=== PATIENT | female | born 1975 | race African-American/Black ===

== ENCOUNTER 2017-01-14 19:20 | Emergency (ER) | payer MEDICARE, OTHER ==
[~2017-01-14] VITALS: Ht 149.9 cm; Wt 86.2 kg
[2017-01-14 19:50] VITALS: BP 189/76
[2017-01-14] MEDS ORDERED: GABAPENTIN 300 MG CAPSULE. PO STA (20:00)
[2017-01-14] MEDS ORDERED: KETOROLAC TROMETHAMINE 60 MG/2 ML INJ. IM ONE (20:15)
[2017-01-14] MEDS ORDERED: predniSONE 20 MG TABLET PO ONE (20:15)
[2017-01-14] MEDS ORDERED: diazePAM 5 MG TABLET PO ONE (20:15)
[2017-01-14] MEDS ORDERED: MORPHINE SULFATE 10 MG/ML VIAL. IM ONE (20:15)
[2017-01-14] MEDS ORDERED: HYDR-971 PO (20:31)
[2017-01-14] MEDS ORDERED: CYCL10TA2 PO (20:31)
[2017-01-14] MEDS ORDERED: GABA-586 PO (20:31)
[2017-01-14] MEDS ORDERED: PRED-220 PO (20:31)
--- NOTE | 2017-01-14 20:31 | PHYS DOC ---
Past Medical History Past Medical History: No Pertinent History Past Surgical History: Hysterectomy Alcohol Use: None Drug Use: None Adult General Chief Complaint Chief Complaint: DENTAL PROBLEM HPI HPI Patient is a 41 year old female who presents with moderate left jaw pain. Patient states she was diagnosed with trigeminal neuralgia and is on carbamazepine. Patient states the medication is not helping. Patient denies any fever. Review of Systems Review of Systems Constitutional: Denies fever or chills [] Eyes: Denies change in visual acuity, redness, or eye pain [] HENT: Denies nasal congestion or sore throat [] Respiratory: Denies cough or shortness of breath [] Cardiovascular: No additional information not addressed in HPI [] GI: Denies abdominal pain, nausea, vomiting, bloody stools or diarrhea [] : Denies dysuria or hematuria [] Musculoskeletal: Denies back pain or joint pain [] Integument: Denies rash or skin lesions [] Neurologic: Left jaw pain due to trigeminal neuralgia Current Medications Current Medications Current Medications Medications (Trade) Dose Ordered Sig/[facility] Start Time Stop Time Status Last Admin Dose Admin Diazepam (Valium) 5 mg 1X ONCE 01/14/17 20:15 01/14/17 20:16 DC 01/14/17 20:15 5 MG Gabapentin (Neurontin) 300 mg 1X STAT 01/14/17 20:00 01/14/17 20:04 DC 01/14/17 20:15 300 MG Ketorolac Tromethamine (Toradol Im) 60 mg 1X ONCE 01/14/17 20:15 01/14/17 20:16 DC 01/14/17 20:16 60 MG Morphine Sulfate 5 mg 1X ONCE 01/14/17 20:15 01/14/17 20:16 DC 01/14/17 20:16 5 MG Prednisone (Prednisone) 60 mg 1X ONCE 01/14/17 20:15 01/14/17 20:16 DC 01/14/17 20:15 60 MG Allergies Allergies Allergies Coded Allergies Type Severity Reaction Last Updated Verified No Known Drug Allergies 01/14/17 No Physical Exam Physical Exam Constitutional: Well developed, well nourished, no acute distress, non-toxic appearance. []Patient is crying. HENT: Normocephalic, atraumatic, bilateral external ears normal, oropharynx moist, no oral exudates, nose normal. [] Eyes: PERRLA, EOMI, conjunctiva normal, no discharge. [] Neck: Normal range of motion, no tenderness, supple, no stridor. [] Cardiovascular:Heart rate regular rhythm, no murmur [] Lungs & Thorax: Bilateral breath sounds clear to auscultation [] Abdomen: Bowel sounds normal, soft, no tenderness, no masses, no pulsatile masses. [] Skin: Warm, dry, no erythema, no rash. [] Back: No tenderness, no CVA tenderness. [] Extremities: No tenderness, no cyanosis, no clubbing, ROM intact, no edema. [] Neurologic: Alert and oriented X 3, normal motor function, normal sensory function, no focal deficits noted. Patient is in moderate pain. Exam very difficult. Tenderness noted on touching the left side of her face. Psychologic: Affect normal, judgement normal, mood normal. [] Current Patient Data Vital Signs Vital Signs Date Time Temp Pulse Resp B/P (MAP) Pulse Ox O2 Delivery O2 Flow Rate FiO2 01/14/17 20:16 16 Room Air 01/14/17 19:50 99.3 87 99 99.3 EKG EKG [] Radiology/Procedures Radiology/Procedures [] Course & Med Decision Making Course & Med Decision Making Pertinent Labs and Imaging studies reviewed. (See chart for details) Patient arrived in the ED crying out loud due to trigeminal neuralgia pain we initially could not figure out what her source of pain was because all she was doing is crying and stating she has jaw pain. She's had this pain for 2 months. She is on carbamazepine. She states is not helping. She was given pain relief in the ED. She was discharged with gabapentin cyclobenzaprine prednisone and [place] 8 tablets. She was instructed to follow-up with a neurologist which I provided. Dragon Disclaimer Dragon Disclaimer This electronic medical record was generated, in whole or in part, using a voice recognition dictation system. Departure Departure Impression: Primary Impression: Trigeminal neuralgia of left side of face Disposition: HOME, SELF-CARE Condition: STABLE Referrals: NO PCP (PCP) KRISTAL GATICA MD follow up as soon as you can Patient Instructions: Trigeminal Neuralgia Additional Instructions: You were seen for trigeminal neuralgia pain. Please follow-up with the provided urologist as soon as possible. Take the medications provided as ordered. Come back to the ED if symptoms worsen. Scripts Prednisone (PREDNISONE) 10 Mg Tablet 10 MG PO UD for PREDNISONE TAPER, #39 TAB 0 Refills Take 3 tablets by mouth twice a day for 3 days, then take 2 tablets by mouth twice a day for 3 days, then take 1 tablet by mouth twice a day for 3 days, then take 1 tablet by mouth daily x 3 days, then stop. Prov: BHUPINDER DAVILA APRN 01/14/17 Cyclobenzaprine Hcl (CYCLOBENZAPRINE HCL) 10 Mg Tablet 1 TAB PO TID, #30 TAB Prov: BHUPINDER DAVILA APRN 01/14/17 Gabapentin (GABAPENTIN) 300 Mg Capsule 300 MG PO TID, #30 CAP Prov: BHUPINDER DAVILA APRN 01/14/17 Hydrocodone/Apap 5-325 (NORCO 5-325 TABLET) 1 Each Tablet 1-2 TAB PO Q4-6HRS, #8 TAB DO NOT FILL IF SHE HAS FILLED ANY NARCOTICS IN THE LAST SEVEN DAYS CAN NOT BE FILLED PAST 01/15/2017 Prov: BHUPINDER DAVILA APRN 01/14/17 BHUPINDER DAVILA APRN Jan 14, 2017 20:31
== END 2017-01-14 20:58 | disposition home or self-care (01) ==
LOC: ER 19:20
DX: G50.0 Trigeminal neuralgia (principal)
CPT/HCPCS: 96372; 99284; J1885; J2270; J7512

== ENCOUNTER → 2017-01-28 | Outpatient (CLI) | payer MEDICARE, OTHER ==
[2017-01-14 19:50] VITALS: BP 189/76
[~2017-01-28] MED LIST: CYCL10TA2 PO; GABA-586 PO; GADOBUTROL 7.5 MMOL/7.5 ML VIAL IV ONE; HYDR-971 PO; PRED-220 PO
[2017-01-28 10:34] LABS: BASO % 0 % (0-3); EOS % 0 % (0-3); HEMOGLOBIN 12.9 g/dL (12.0-15.5); LYMPH # 1.1 x10^3/uL (1.0-4.8); LYMPH % 13 % (24-48); MEAN CORPUSCULAR HEMOGLOBIN 29 pg (25-35); MEAN CORPUSCULAR HGB CONC 34 g/dL (31-37); MEAN CORPUSCULAR VOLUME 85 fL (79-100); MONO % 6 % (0-9); NEUT % 80 % (31-73); PLATELET COUNT 221 x10^3/uL (140-400); RED BLOOD COUNT 4.46 x10^6/uL (3.50-5.40); RED CELL DISTRIBUTION WIDTH 15.9 % (11.5-14.5); WHITE BLOOD COUNT 8.5 x10^3/uL (4.0-11.0)
[2017-01-28 10:49] LABS: ALBUMIN 3.4 g/dL (3.4-5.0); ALBUMIN/GLOBULIN RATIO 1.1 (1.0-1.7); CALCIUM 8.8 mg/dL (8.5-10.1); CREATININE 0.8 mg/dL (0.6-1.0); GFR 94.7; POTASSIUM 3.8 mmol/L (3.5-5.1); TOTAL BILIRUBIN 0.3 mg/dL (0.2-1.0); TOTAL PROTEIN 6.5 g/dL (6.4-8.2)
--- NOTE | 2017-01-28 14:06 | RAD ---
Temporomandibular joints, 6 views, 01/28/2017: History: Left TMJ pain Lateral views of both temporomandibular joints were obtained with the mouth open and closed. Additional AP and Susan's views were also obtained. The mandibular condyles were poorly delineated on these images is due to overlap of other bony structures. There appears to be less anterior translation of the left mandibular condyle compared to the right with opening of the mouth. No fracture or destructive bony lesion is seen. MR scanning of the temporal mandibular joints is suggested for further evaluation, if clinically indicated.
--- NOTE | 2017-01-28 14:35 | RAD ---
MRI of the brain without and with contrast 01/28/2017 CLINICAL HISTORY: Left sided trigeminal neuralgia for 3 years. TECHNIQUE: Unenhanced T1-weighted sagittal and axial and FLAIR, diffusion-weighted and T2-weighted axial images of the brain were obtained. Thin section T1-weighted sagittal and axial and T2-weighted axial images through the brainstem to include the proximal trigeminal nerves were obtained. After the intravenous administration of 7.5 cc of Gadavist, enhanced T1-weighted axial images of the brain were obtained. Enhanced thin section T1-weighted sagittal and axial and coronal images through the IACs were obtained. FINDINGS: No previous imaging studies are available for comparison. The ventricles and sulci are within normal limits in size and configuration. Patchy and several small scattered areas of increased signal intensity are seen on the FLAIR and T2-weighted images involving the white matter of both cerebral hemispheres particularly involving the frontal lobes. These measure 1 to 2 to 6 mm in size. Their MRI appearance is nonspecific and could represent areas of small vessel ischemic disease or could be seen in patients with history of migraine headaches. No acute parenchymal abnormality is seen. There is no MRI evidence of acute ischemia/infarction. No abnormal area of contrast enhancement is seen. No extra-axial fluid collection is noted. Incidental note is made of predominantly empty sella turcica. The visualized portions of the trigeminal nerves are within normal limits. No abnormal soft tissue mass or area of abnormal contrast enhancement is seen. Mild mucosal thickening in seen scattered throughout the paranasal sinuses. Normal flow voids are seen within the major vascular structures surrounding the brain parenchyma. IMPRESSION: No acute parenchymal abnormality is seen. Electronically signed by: Mati Tariq MD (01/28/2017 2:32 PM) [facility]
== END | disposition home or self-care (01) ==
LOC: MRI 09:39
PROVIDERS: ATTEND Psychiatry & Neurology Neurology
DX: G50.0 Trigeminal neuralgia (principal); M26.622 Arthralgia of left temporomandibular joint
CPT/HCPCS: 36415; 70330; 70553; 80053; 85025; 85651; 86141; A9585

== ENCOUNTER → 2017-03-04 | Outpatient (CLI) | payer MEDICARE, OTHER ==
[~2017-03-04] MED LIST changes: -GADOBUTROL 7.5 MMOL/7.5 ML VIAL IV ONE
--- NOTE | 2017-03-04 13:14 | PAIN ---
DATE OF SERVICE: 03/04/2017 INITIAL CONSULTATION FOR PAIN CLINIC CHIEF COMPLAINT: Left-sided jaw pain. HISTORY OF PRESENT ILLNESS: This is a 41-year-old female who presents with history of pain in the left jaw since 2013. The patient reports it gradually increased, not a result of any specific injury or accident that she is aware of, got much worse at that time and then had about a 2-3 month period where it disappeared completely and she felt normal but then returned in December of this year. The patient reports it is hard to chew and open her mouth , hard to talk and has a burning sensation just in front of the either on the left side and in the back, top of the jaw on the left side. The patient reports it occasionally radiates, caused some pain and headaches on the left side above her temporal region on the left and sometimes to the top of the eyelid on the left side also and occasionally into the jaw itself, to the angles of jaw, the mandible but no other radiation. The patient reports again much worse with activity and movement. She states still the pain is decreased but is still present. The patient reports it wakes her from sleep at night, especially if she lies on her left side, had difficulty getting into sleep because of the pain, difficulty eating all meals, is essentially constant throughout the day and worse with activity, eating and any talking or yawning. The patient reports disability rate is 10 on a scale of 10 with self care and life support activities. She reports the pain is burning in sensation. She has seen a dentist to evaluate the pain and by her report had no dental abnormalities that might cause this. The patient has been taking gabapentin and carbamazepine at the same time b.i.d. and reports the pain is slightly better with this but only slightly. The patient reports no right sided systems. PAST MEDICAL HISTORY: Significant for headaches, dizziness, previous hysterectomy and blood transfusion. Otherwise, the patient has been in reasonably good health. CURRENT MEDICATIONS: Include prednisone taper which is finished now, cyclobenzaprine, gabapentin, carbamazepine and hydrocodone. FAMILY HISTORY: Significant for multiple scleroses, hypertension and hyperlipidemia. SOCIAL HISTORY: The patient does not smoke, does not drink alcohol or use other illegal or illicit drugs. She is single, has 3 children living in the home and is currently unemployed and also disabled. ALLERGIES: The patient has no known drug allergies. REVIEW OF SYSTEMS: The patient's review of systems is positive for those items mentioned in history of present illness. All systems are reviewed and otherwise negative. It is complete, full and well documented on the patient's chart. PHYSICAL EXAMINATION: VITAL SIGNS: Today's blood pressure is 143/98, pulse is 67, respirations 18, temperature 97.8 degrees Fahrenheit, height is 4 feet 11 inches and weight is 191 pounds. GENERAL: The patient is awake, alert, oriented, appropriate, very pleasant demeanor. HEENT: Shows normocephalic and atraumatic. Extraocular movements are intact, symmetrical. Oral cavity, mucous membranes are moist and pink. Dentition is intact. The patient's jaw shows significant tenderness with opening past about 5 cm from upper to lower teeth distance and the patient has no lesions on the internal buccal mucosa or the tongue or the soft or hard palate. Dentition is intact. The patient has significant pain, however, opening past this are is decreased with closing of the jaw to some extent but still present only on the left side with palpation of the left temporomandibular joint feels essentially normal. It looks slightly swollen but it is very symmetrical to the right side with inspection, with palpation again fairly tender with palpation just in front of the ear, the preauricular area over the temporomandibular joint location. No tenderness on the angle of the jaw with palpation but some tenderness in the zygomatic arch as well laterally in front of the ear also. The patient shows no radiation of pain. Again, pupils equal, round and reactive to light and accommodation. Extraocular muscles are intact. No lesions, rashes or scars are noted on the face or the distribution of the face with pain. NECK: Shows anterior throat supple without palpable lymphadenopathy noted. Swallow reflex is symmetrical. Neck shows full rotational motion of cervical spine both laterally, past 45 degrees right and left as well as full extension and full forward flexion without pain reported. CHEST: Shows normal with inspection. Breath sounds clear to auscultation bilaterally. HEART: Shows S1 and S2 clear. No murmurs auscultated. ABDOMEN: Soft, nontender and nondistended. No palpable organomegaly. No rebound or guarding demonstrated. BACK: Shows spine grossly in midline, normal-appearing cervical lordotic curvature and thoracic kyphotic curvature as well as lumbar lordotic curvature. No previous bruises, lesions, rashes or scars noted. IMPRESSION: This is a 41-year-old female with approximately 3-year history of pain in the left jaw, intermittent but returning in December of 2016 without injury or accident, consistent with temporomandibular joint pain, worse with eating, chewing, yawning or opening her mouth even with talking. PLAN: Options were discussed with the patient and she is taking both Tegretol and Neurontin at the same time without significant improvement with the medication combination. I encouraged her to hold the Tegretol for approximately one week and take only the Neurontin as prescribed, to see if this may make a difference at least with less sedation as she reports being quite dizzy with both these medications and actually has lost balance on one occasion and fallen. I will see if this makes a difference. Also, we will refer her to Ear, Nose and Throat specialist. She reports she is seeing her dentist already without any significant findings or causes for her pain from a dental perspective. We will have her see an ENT specialist for evaluation of the temporomandibular joint. PRATEEK BULLARD MD DR: MONICA/yadiel JOB#: [id number] / [id number]
== END | disposition home or self-care (01) ==
LOC: PNCL 09:02
PROVIDERS: ATTEND Anesthesiology
DX: R68.84 Jaw pain (principal); I10 Essential (primary) hypertension; E78.5 Hyperlipidemia, unspecified; R42 Dizziness and giddiness; Z90.710 Acquired absence of both cervix and uterus
CPT/HCPCS: 99214

== ENCOUNTER → 2017-04-24 | Outpatient (CLI) | payer MEDICARE, OTHER ==
[2017-04-24 12:13] LABS: BASO % 1 % (0-3); EOS % 2 % (0-3); HEMATOCRIT 41.5 % (36.0-47.0); HEMOGLOBIN 13.7 g/dL (12.0-15.5); LYMPH % 22 % (24-48); MEAN CORPUSCULAR HEMOGLOBIN 29 pg (25-35); MEAN CORPUSCULAR HGB CONC 33 g/dL (31-37); MEAN CORPUSCULAR VOLUME 88 fL (79-100); MONO % 10 % (0-9); NEUT % 66 % (31-73); PLATELET COUNT 213 x10^3/uL (140-400); RED BLOOD COUNT 4.73 x10^6/uL (3.50-5.40); RED CELL DISTRIBUTION WIDTH 13.3 % (11.5-14.5); WHITE BLOOD COUNT 4.8 x10^3/uL (4.0-11.0)
[2017-04-24 12:29] LABS: ALBUMIN 3.6 g/dL (3.4-5.0); CALCIUM 8.4 mg/dL (8.5-10.1); CREATININE 0.9 mg/dL (0.6-1.0); GFR 82.7; POTASSIUM 3.6 mmol/L (3.5-5.1); TOTAL BILIRUBIN 0.2 mg/dL (0.2-1.0); TOTAL PROTEIN 7.3 g/dL (6.4-8.2)
== END | disposition home or self-care (01) ==
LOC: LAB 11:37
PROVIDERS: ATTEND Psychiatry & Neurology Neurology
DX: G50.0 Trigeminal neuralgia (principal)
CPT/HCPCS: 36415; 80053; 85025

== ENCOUNTER 2017-07-23 18:55 | Emergency (ER) | payer MEDICARE, OTHER ==
[2017-07-23 20:10] LABS: INFLUENZA A PATIENT NEGATIVE (NEGATIVE); INFLUENZA B PATIENT NEGATIVE (NEGATIVE); OBC FLU VALID
== END 2017-07-23 20:25 | disposition home or self-care (01) ==
LOC: ER 18:55
DX: J18.1 Lobar pneumonia, unspecified organism (principal); Z90.710 Acquired absence of both cervix and uterus
CPT/HCPCS: 71046; 87804; 87804-59; 99285-25

== ENCOUNTER → 2017-12-02 | Outpatient (CLI) | payer MEDICARE, OTHER ==
[2017-12-02 10:56] LABS: ADD MAN DIFF? NO
[2017-12-02 10:59] LABS: BASO # 0.1 x10^3/uL (0.0-0.2); BASO % 1 % (0-3); EOS # 0.1 x10^3/uL (0.0-0.7); EOS % 2 % (0-3); HEMATOCRIT 39.7 % (36.0-47.0); HEMOGLOBIN 13.8 g/dL (12.0-15.5); LYMPH # 1.1 x10^3/uL (1.0-4.8); LYMPH % 16 % (24-48); MEAN CORPUSCULAR HEMOGLOBIN 31 pg (25-35); MEAN CORPUSCULAR HGB CONC 35 g/dL (31-37); MEAN CORPUSCULAR VOLUME 88 fL (79-100); MONO # 0.5 x10^3/uL (0.0-1.1); MONO % 7 % (0-9); NEUT # 5.2 x10^3uL (1.8-7.7); NEUT % 74 % (31-73); PLATELET COUNT 205 x10^3/uL (140-400); RED BLOOD COUNT 4.51 x10^6/uL (3.50-5.40); RED CELL DISTRIBUTION WIDTH 12.9 % (11.5-14.5)
[2017-12-02 11:29] LABS: ALBUMIN 3.7 g/dL (3.4-5.0); ALK PHOS 110 U/L (46-116); ALT (SGPT) 19 U/L (14-59); ANION GAP 7 (6-14); AST (SGOT) 16 U/L (15-37); BLOOD UREA NITROGEN 19 mg/dL (7-20); BUN/CREATININE RATIO 21 (6-20); CALCIUM 8.9 mg/dL (8.5-10.1); CARBON DIOXIDE 30 mmol/L (21-32); CHLORIDE 103 mmol/L (98-107); CREATININE 0.9 mg/dL (0.6-1.0); GFR 82.3; GLUCOSE 86 mg/dL (70-99); POTASSIUM 4.3 mmol/L (3.5-5.1); SODIUM 140 mmol/L (136-145); TOTAL BILIRUBIN 0.2 mg/dL (0.2-1.0); TOTAL PROTEIN 7.3 g/dL (6.4-8.2)
== END | disposition home or self-care (01) ==
LOC: LAB 10:37
DX: G50.0 Trigeminal neuralgia (principal); I10 Essential (primary) hypertension; E78.5 Hyperlipidemia, unspecified; Z90.710 Acquired absence of both cervix and uterus
CPT/HCPCS: 36415; 80053; 85025

== ENCOUNTER → 2018-04-21 | Outpatient (CLI) | payer MEDICARE, OTHER ==
[2017-07-23 19:05] VITALS: BP 153/66
[~2018-04-21] MED LIST changes: +AZIT250T PO; -GABA-586 PO; +GABA300C18 PO; +HYDR-3164 PO; -HYDR-971 PO
[2018-04-21 11:32] LABS: BASO % 1 % (0-3); EOS # 0.1 x10^3/uL (0.0-0.7); EOS % 3 % (0-3); HEMATOCRIT 40.5 % (36.0-47.0); HEMOGLOBIN 13.8 g/dL (12.0-15.5); LYMPH % 20 % (24-48); MEAN CORPUSCULAR HEMOGLOBIN 30 pg (25-35); MEAN CORPUSCULAR HGB CONC 34 g/dL (31-37); MEAN CORPUSCULAR VOLUME 88 fL (79-100); MONO # 0.4 x10^3/uL (0.0-1.1); MONO % 8 % (0-9); NEUT # 3.5 x10^3uL (1.8-7.7); NEUT % 68 % (31-73); PLATELET COUNT 213 x10^3/uL (140-400); RED BLOOD COUNT 4.61 x10^6/uL (3.50-5.40); RED CELL DISTRIBUTION WIDTH 12.8 % (11.5-14.5); WHITE BLOOD COUNT 5.1 x10^3/uL (4.0-11.0)
[2018-04-21 11:46] LABS: ALBUMIN 3.8 g/dL (3.4-5.0); CALCIUM 9.3 mg/dL (8.5-10.1); GFR 72.9; POTASSIUM 4.2 mmol/L (3.5-5.1); TOTAL BILIRUBIN 0.2 mg/dL (0.2-1.0); TOTAL PROTEIN 7.6 g/dL (6.4-8.2)
== END | disposition home or self-care (01) ==
LOC: LAB 11:04
PROVIDERS: ATTEND Psychiatry & Neurology Neurology
DX: G50.0 Trigeminal neuralgia (principal)
CPT/HCPCS: 36415; 80053; 85025

== ENCOUNTER → 2018-07-01 | Outpatient (CLI) | payer OTHER ==
[2017-07-23 19:05] VITALS: BP 153/66
[~2018-07-01] MED LIST changes: +REGADENOSON 0.4 MG/5 ML DISP.SYRIN. IV ONE
--- NOTE | 2018-07-02 15:01 | RAD ---
MR#: [id number] Date of Study: 07/02/2018 Ordering Physician: MIRANDA CASTAÑEDA Referring Physician: LILIA AMANDA Tech: Sterling Carmona RT (R) (N) APPROVED REPORT Test Type: Pharmacological Stress Nurse/Tech: Felicity Bartholomew RN Test Indications: chest pain Cardiac History: Family history Medications: See Electronic Medical Record Medical History: See Electronic Medical Record Resting ECG: SR Resting Heart Rate: 66 bpm Resting Blood Pressure: 158/90mmHg Pretest Chest Pain: None Nurse/Tech Notes lungs CTA, S1S2 Consent: The procedure was explained to the patient in lay terms. Informed consent was witnessed. Timmy eout was entered into [employer]. History and Stress Test performed by Felicity Bartholomew RN Pharm. Details Pharmacologic stress testing was performed using 0.4mg per 5ml of regadenoson given intravenously ove r 7-10 seconds. Stress Symptoms no chest pain. Headache POST EXERCISE Reason for Termination: Infusion complete Max HR: 97 bpm Max Blood Pressure: 171/51mmHg Blood Pressure response to exercise: Normal blood pressure response during stress. Heart Rate response to exercise: normal response Chest Pain: No. Arrhythmia: No. ST Change: No. INTERPRETATION Stress EKG Conclusion: The baseline EKG shows a sinus rhythm with nonspecific T-wave changes. The stress EKG shows no significant changes from baseline No EKG evidence of stressed induced ischemia. Imaging Protocol IMAGE PROTOCOL: Rest Tc-99m/stress Tc-99m 2 days Rest: Stress: Viability: Radiopharm.Tc99m SwpkmkzyiYy59k Sestamibi Rwxy94uYt 33mCi Duration 15min. 12min. Img Date 07/02/2018 07/02/2018 Inj-Img Xysp20cvw. 60min. Rest Admin Site:IV - Right AntecubitalAdministrator:MICHELL Morales Stress Admin Site: IV - Right HandAdministrator: MICHELL Morales STRESS DATA End Diast. Vol.89.0mlAv. Heart Rate74.0bpm End Syst. Vol.19.0mlCO Index BSA0.0L/min Myocardial Ncmr320.0gEject. Itgpjoyo20.0% Stress Rates Pk. Fill Rate2.38EDV/secLVtime Pk. Fill 148.61msec Pk. Empty Rate3.03ESV/secLVtime Pk. Fyxqo525.41msec 05/14 Pk. Fill1.54EDV/sec Stress Scores Regional WT0.00Summed WT0.00 Regional WM0.00Summed WM0.00 LV Perfusion The stress scans showed no significant defects. The rest scans showed no significant defects. Nuclear imaging shows no reversible ischemia or infarct. Wall Motion Normal left ventricular systolic function with no wall motion abnormalities and an ejection fraction of greater than 70%. LV Perf. Quant 17 Seg. SSS0.00 17 Seg. SRS0.00 17 Seg. SDS0.00 Stress Defect Extent (% LAD)0.00Rest Defect Extent (% LAD)0.00Rev. Defect Extent (% LAD)0.00 Stress Defect Extent (% LCX) 0.00Rest Defect Extent (% LCX)0.00Rev. Defect Extent (% LCX)0.00 Stress Defect Extent (% RCA)0.00Rest Defect Extent (% RCA)0.00Rev. Defect Extent (% RCA)0.00 Stress Defect Extent (% MARYCARMEN)0.00Rest Defect Extent (% MARYCARMEN)0.00Rev. Defect Extent (% MARYCARMEN)0.00 Conclusion 1. No EKG evidence of stress-induced ischemia. 2. Nuclear imaging shows no reversible ischemia or infarct. 3. Normal left ventricular systolic function with an ejection fraction of greater than 70%. 4. Low risk Lexiscan nuclear stress test. Signed by : Navid Weber MD Electronically Approved : 07/02/2018 15:00:36
--- NOTE | 2018-07-02 15:46 | CARD ---
MR#: [id number] Date of Study: 07/02/2018 Ordering Physician: MIRANDA CASTAÑEDA, Referring Physician: MIRANDA CASTAÑEDA Tech: Jenn Lugo RDCS APPROVED REPORT EXAM: Two-dimensional and M-mode echocardiogram with Doppler and color Doppler. Other Information Quality : Technically LimitedHR: 77bpm Rhythm : NSRTechnically limited study due to body habitus. INDICATION Chest Pain 2D DIMENSIONS RVDd2.4 (2.9-3.5cm)Left Atrium(2D)3.0 (1.6-4.0cm) IVSd1.0 (0.7-1.1cm)Aortic Root(2D)3.0 (2.0-3.7cm) LVDd4.5 (3.9-5.9cm)LVOT Diameter1.8 (1.8-2.4cm) PWd1.0 (0.7-1.1cm)LVDs3.0 (2.5-4.0cm) FS (%) 33.0 %SV57.3 ml M-Mode DIMENSIONS Left Atrium(MM)3.45 (2.5-4.0cm)Aortic Root3.25 (2.2-3.7cm) Aortic Valve AoV Peak Dmitry.131.8cm/sAoV VTI27.1cm AO Peak GR.7.0mmHgLVOT Peak Dmitry.100.1cm/s AO Mean GR.4mmHgAVA (VMAX)2.01cm2 GARFIELD (VTI)2.00cm2 Mitral Valve MV E Gvfxiszz462.1cm/sMV DECEL DHBW797zk MV A Iwkegpbr401.0cm/sE/A Ratio1.1 MV A Fzlyhcme877ii Pulmonary Valve PV Peak Dgbgyllm36.1cm/s Tricuspid Valve TR P. Nxftqxty232ky/sRAP FARWPDLJ9mkSy TR Peak Gr.37kmHrVBKX32pwMp LEFT VENTRICLE The left ventricle is normal size. There is normal left ventricular wall thickness. The left ventricu lar systolic function is normal and the ejection fraction is within normal range. The Ejection Fracti on is 60-65%. There is normal LV segmental wall motion. The left ventricular diastolic function and f illing is normal for age. RIGHT VENTRICLE The right ventricle is normal size. There is normal right ventricular wall thickness. The right ventr icular systolic function is normal. ATRIA The left atrium size is normal. The right atrium size is normal. The interatrial septum is intact wit h no evidence for an atrial septal defect or patent foramen ovale as noted on 2-D or Doppler imaging. AORTIC VALVE The aortic valve is trileaflet. The aortic valve is normal in structure and function. Doppler and Col or Flow revealed no significant aortic regurgitation. There is no significant aortic valvular stenosi s. MITRAL VALVE The mitral valve is normal in structure and function. There is no evidence of mitral valve prolapse. There is no mitral valve stenosis. Doppler and Color Flow revealed no mitral valve regurgitation note d. TRICUSPID VALVE The tricuspid valve is normal in structure and function. Doppler and Color Flow revealed trace tricus pid regurgitation. The PA pressure was estimated at 35 mmHg. There is no tricuspid valve prolapse or vegetation. There is no tricuspid valve stenosis. PULMONIC VALVE Pulmonic valve not well visualized. GREAT VESSELS The aortic root is normal in size. The ascending aorta is normal in size. The IVC is normal in size a nd collapses >50% with inspiration. PERICARDIAL EFFUSION There is no evidence of significant pericardial effusion. Critical Notification Critical Value: No <Conclusion> The left ventricle is normal size. The left ventricular systolic function is normal and the ejection fraction is within normal range. The Ejection Fraction is 60-65%. There is no significant aortic valvular stenosis. Doppler and Color Flow revealed no significant aortic regurgitation. Doppler and Color Flow revealed no mitral valve regurgitation noted. Doppler and Color Flow revealed trace tricuspid regurgitation. The PA pressure was estimated at 35 mmHg. Signed by : Navid Weber MD Electronically Approved : 07/02/2018 15:45:44
== END | disposition home or self-care (01) ==
LOC: ECHO 08:36
PROVIDERS: ATTEND Internal Medicine Cardiovascular Disease
DX: R07.9 Chest pain, unspecified (principal); Z82.49 Family history of ischemic heart disease and other diseases of the circulatory system
CPT/HCPCS: 78452; 96374; A9500; 93017; 93306; 96376; J2785

== ENCOUNTER → 2018-08-14 | Outpatient (CLI) | payer MEDICARE, OTHER ==
[2017-07-23 19:05] VITALS: BP 153/66
[~2018-08-14] MED LIST changes: -REGADENOSON 0.4 MG/5 ML DISP.SYRIN. IV ONE
[2018-08-14 13:08] LABS: BASO % 0 % (0-3); EOS # 0.1 x10^3/uL (0.0-0.7); EOS % 2 % (0-3); HEMATOCRIT 41.4 % (36.0-47.0); HEMOGLOBIN 13.9 g/dL (12.0-15.5); LYMPH # 1.1 x10^3/uL (1.0-4.8); LYMPH % 23 % (24-48); MEAN CORPUSCULAR HEMOGLOBIN 29 pg (25-35); MEAN CORPUSCULAR HGB CONC 34 g/dL (31-37); MEAN CORPUSCULAR VOLUME 87 fL (79-100); MONO # 0.4 x10^3/uL (0.0-1.1); MONO % 8 % (0-9); NEUT # 3.2 x10^3uL (1.8-7.7); NEUT % 67 % (31-73); PLATELET COUNT 212 x10^3/uL (140-400); RED BLOOD COUNT 4.75 x10^6/uL (3.50-5.40); RED CELL DISTRIBUTION WIDTH 13.3 % (11.5-14.5); WHITE BLOOD COUNT 4.7 x10^3/uL (4.0-11.0)
[2018-08-14 13:14] LABS: PROTHROMBIN TIME PATIENT 13.6 SEC (11.7-14.0)
[2018-08-14 13:28] LABS: ALBUMIN 3.8 g/dL (3.4-5.0); CALCIUM 9.2 mg/dL (8.5-10.1); CREATININE 0.7 mg/dL (0.6-1.0); GFR 109.5; TOTAL BILIRUBIN 0.2 mg/dL (0.2-1.0); TOTAL PROTEIN 7.5 g/dL (6.4-8.2)
== END | disposition home or self-care (01) ==
LOC: LAB 12:09
PROVIDERS: ATTEND Psychiatry & Neurology Neurology
DX: G50.0 Trigeminal neuralgia (principal); Z79.01 Long term (current) use of anticoagulants
CPT/HCPCS: 36415; 80053; 85025; 85610

== ENCOUNTER 2018-08-20 09:16 | Outpatient (CLI) | payer OTHER ==
[2018-08-20 09:53] LABS: BASO % 1 % (0-3); EOS # 0.1 x10^3/uL (0.0-0.7); EOS % 2 % (0-3); HEMATOCRIT 39.3 % (36.0-47.0); LYMPH # 1.1 x10^3/uL (1.0-4.8); LYMPH % 18 % (24-48); MEAN CORPUSCULAR HEMOGLOBIN 29 pg (25-35); MEAN CORPUSCULAR HGB CONC 33 g/dL (31-37); MEAN CORPUSCULAR VOLUME 88 fL (79-100); MONO # 0.5 x10^3/uL (0.0-1.1); MONO % 8 % (0-9); NEUT # 4.4 x10^3uL (1.8-7.7); NEUT % 72 % (31-73); PLATELET COUNT 200 x10^3/uL (140-400); RED BLOOD COUNT 4.49 x10^6/uL (3.50-5.40); RED CELL DISTRIBUTION WIDTH 13.4 % (11.5-14.5); WHITE BLOOD COUNT 6.1 x10^3/uL (4.0-11.0)
[2018-08-20] MEDS ORDERED: LIDOCAINE WITH 8.4% SOD BICARB 3 ML DISP.SYRIN. INJ ONE ×2 (10:00→11:00)
[2018-08-20 10:01] LABS: PROTHROMBIN TIME PATIENT 13.8 SEC (11.7-14.0)
[2018-08-20 10:09] LABS: ALBUMIN 3.6 g/dL (3.4-5.0); ALBUMIN/GLOBULIN RATIO 1.1 (1.0-1.7); CALCIUM 8.4 mg/dL (8.5-10.1); CREATININE 0.9 mg/dL (0.6-1.0); GFR 81.9; POTASSIUM 4.1 mmol/L (3.5-5.1); TOTAL BILIRUBIN 0.2 mg/dL (0.2-1.0)
[2018-08-20 11:30] VITALS: BP 142/93
[2018-08-20 12:07] LABS: CSF PROTEIN 38.1 mg/dL (15.0-45.0)
[2018-08-20 12:10] LABS: CSF CLARITY CLEAR; CSF COLOR COLORLESS; CSF RBC COUNT 0 /cmm (Not Established); CSF WBC COUNT 0 /cmm (Not Established)
[2018-08-20 13:13] VITALS: BP 128/83
--- NOTE | 2018-08-20 13:23 | RAD ---
Examination: LUMBAR PUNCTURE History: 1.4 MIN FLUORO TIME
OPENING PRESSURE - 35
CLOSING PRESSURE - 27.5
13ML LIDOCAINE 1% USED
10 ML CSF REMOVED
1 FLUORO IMAGE SENT FINDINGS: The procedure along with its risks and benefits were explained to the patient. Informed consent was obtained. A timeout procedure was performed. The patient was placed in the left anterior oblique position on the fluoroscopy table. The L5-S1 level was localized fluoroscopically. The overlying skin was sterilely prepped and infiltrated with 1% lidocaine for local anesthesia. Under fluoroscopic guidance, a 20-gauge spinal needle was advanced into the thecal sac. A fluoroscopic image was obtained. Fluoroscopy time 1.4 minutes. Opening CSF pressure was 35 mmHg and and closing pressure of 27.5 mmHg noted. There was spontaneous return of clear cerebrospinal fluid. 10 mL were collected. Instrumentation was withdrawn and a sterile dressing placed. There were no immediate complications. Postprocedural instructions were provided. IMPRESSION: 1. Specimens sent to the lab. Elevated opening CSF pressure. Electronically signed by: Modesto Armenta MD (08/20/2018 1:20 PM) [facility]
[2018-08-20 13:30] VITALS: BP 127/82
[2018-08-20 14:15] VITALS: BP 119/78
--- NOTE | 2018-08-20 14:16 | NUR ---
Pt has been supine position since 1129. Pt ate finger food w/o any problem. VSS. Pt received discharge instructions from CT techs. Pt verbalized understanding. Pt is taken out via W/C since pt c/o pain w/ ambulation by this nurse.
[2018-08-22 07:28] LABS: HERPES SIMPLEX TYPE 1 Negative (Negative); HERPES SIMPLEX TYPE 2 Negative (Negative)
[2018-08-31 17:09] LABS: VIRAL CULT FINAL No virus isolated. (.)
== END 2018-08-20 15:05 | disposition home or self-care (01) ==
LOC: RAD 09:16
PROVIDERS: ATTEND Psychiatry & Neurology Neurology
DX: G93.2 Benign intracranial hypertension (principal); Z90.710 Acquired absence of both cervix and uterus; Z79.01 Long term (current) use of anticoagulants; Z79.899 Other long term (current) drug therapy
CPT/HCPCS: 36415; 62270; 77003; 80053; 82945; 84157; 85025; 85610; 87071; 87075; 87102; 87252; 87529; 89051

== ENCOUNTER 2018-11-06 11:15 | Emergency (ER) | payer OTHER, MEDICAID ==
[~2018-11-06] VITALS: Ht 149.9 cm; Wt 95.7 kg
[2018-11-06 11:31] VITALS: BP 123/77
[2018-11-06 11:38] LABS: BILIRUBIN,URINE NEGATIVE (NEG); CLARITY,URINE CLEAR; COLOR,URINE YELLOW; NITRITE,URINE NEGATIVE (NEG); PROTEIN,URINE NEGATIVE (NEG-TRACE)
--- NOTE | 2018-11-06 11:38 | PHYS DOC ---
Past Medical History Past Medical History: Migraines Past Surgical History: Hysterectomy Alcohol Use: None Drug Use: None Adult General Chief Complaint Chief Complaint: PAIN ON URINATION [facility] HPI Patient is a 43 year old female who presents with dysuria for 2 days. Denies any fever. Denies any nausea vomiting. Denies any abdominal pain or back pain. Review of Systems Review of Systems Constitutional: Denies fever or chills [] Eyes: Denies change in visual acuity, redness, or eye pain [] HENT: Denies nasal congestion or sore throat [] Respiratory: Denies cough or shortness of breath [] Cardiovascular: No additional information not addressed in HPI [] GI: Denies abdominal pain, nausea, vomiting, bloody stools or diarrhea [] : Reports dysuria for 2 days, denies hematuria [] Musculoskeletal: Denies back pain or joint pain [] Integument: Denies rash or skin lesions [] Neurologic: Denies headache, focal weakness or sensory changes [] All other systems were reviewed and found to be within normal limits, except as documented in this note. Allergies Allergies Allergies Coded Allergies Type Severity Reaction Last Updated Verified No Known Drug Allergies 01/14/17 No Physical Exam Physical Exam Constitutional: Well developed, well nourished, no acute distress, non-toxic appearance. [] HENT: Normocephalic, atraumatic, bilateral external ears normal, oropharynx moist, no oral exudates, nose normal. [] Eyes: PERRLA, EOMI, conjunctiva normal, no discharge. [] Neck: Normal range of motion, no tenderness, supple, no stridor. [] Cardiovascular:Heart rate regular rhythm, no murmur [] Lungs & Thorax: Bilateral breath sounds clear to auscultation [] Abdomen: Bowel sounds normal, soft, no tenderness, no masses, no pulsatile masses. [] Skin: Warm, dry, no erythema, no rash. [] Back: No tenderness, no CVA tenderness. [] Extremities: No tenderness, no cyanosis, no clubbing, ROM intact, no edema. [] Neurologic: Alert and oriented X 3, normal motor function, normal sensory function, no focal deficits noted. [] Psychologic: Affect normal, judgement normal, mood normal. [] Current Patient Data Vital Signs Vital Signs Date Time Temp Pulse Resp B/P (MAP) Pulse Ox O2 Delivery O2 Flow Rate FiO2 6/28/19 11:31 98.4 72 16 123/77 (92) 99 Room Air 98.4 Lab Values Laboratory Tests Test 11/06/18 11:15 11/06/18 11:24 Urine Collection Type Unknown Urine Color Yellow Urine Clarity Clear Urine pH 7.0 Urine Specific [facility] 1.020 Urine Protein Negative mg/dL (NEG-TRACE) Urine Glucose (UA) Negative mg/dL (NEG) Urine Ketones (Stick) Negative mg/dL (NEG) Urine Blood Negative (NEG) Urine Nitrite Negative (NEG) Urine Bilirubin Negative (NEG) Urine Urobilinogen Dipstick 1.0 mg/dL (0.2 mg/dL) Urine Leukocyte Esterase Moderate (NEG) Urine RBC 1-2 /HPF (0-2) Urine WBC 11-20 /HPF (0-4) Urine Squamous Epithelial Cells Few /LPF Urine Bacteria Many /HPF (0-FEW) Urine Mucus Mod /LPF POC Urine HCG, Qualitative Hcg negative (Negative) EKG EKG [] Radiology/Procedures Radiology/Procedures [] Course & Med Decision Making Course & Med Decision Making Pertinent Labs and Imaging studies reviewed. (See chart for details) This is a 43-year-old female patient presenting to the ED today with dysuria for 2 days. Negative urine hCG. Positive for UTI. Discharged with cephalexin. Given Pyridium as well. OTC pain relievers. Follow-up with primary care doctor in the course of next week. Instructed to push fluids. Provided return precautions Dragon Disclaimer Dragon Disclaimer This electronic medical record was generated, in whole or in part, using a voice recognition dictation system. Departure Departure Impression: Primary Impression: Urinary tract infection Disposition: 01 HOME, SELF-CARE Condition: STABLE Referrals: VESNA DIAMOND (PCP) follow up in 1 week Patient Instructions: Urinary Tract Infection Additional Instructions: You have urinary tract infection. Please take the prescribed medications as ordered please complete your antibiotics. You can take [id number] pain relievers as needed. Follow-up with your doctor in 1-2 weeks. Come back to the ED at any point symptoms worsen. Scripts Phenazopyridine Hcl (PYRIDIUM) 100 Mg Tablet 100 MG PO TID, #9 TAB Prov: BHUPINDER DAVILA APRN 11/06/18 Cephalexin (CEPHALEXIN) 500 Mg Tablet 1 TAB PO BID, #14 TAB Prov: MUTUNGA,BHUPINDER GRAPHIC DESIGN SPECIALIST 11/06/18 Problem Qualifiers Primary Impression: Urinary tract infection Urinary tract infection type: site unspecified Hematuria presence: without hematuria Qualified Codes: N39.0 - Urinary tract infection, site not specified BHUPINDER DAVILA APRN Nov 06, 2018 11:38
[2018-11-06 11:49] LABS: BACTERIA,URINE MANY /HPF (0-FEW); SQUAMOUS EPITHELIAL CELL,UR FEW /LPF
[2018-11-06] MEDS ORDERED: CEPH500T PO (12:12)
[2018-11-06] MEDS ORDERED: PHEN100T82 PO (12:12)
== END 2018-11-06 12:21 | disposition home or self-care (01) ==
LOC: ER 11:15
DX: N39.0 Urinary tract infection, site not specified (principal); G43.909 Migraine, unspecified, not intractable, without status migrainosus; Z90.710 Acquired absence of both cervix and uterus
CPT/HCPCS: 81001; 81025; 99283

== ENCOUNTER → 2019-01-08 | Outpatient (CLI) | payer OTHER, MEDICAID ==
[~2019-01-08] MED LIST changes: +CEPH500T PO; +GADOTERATE 7.5 MMOL/15ML VIAL. IVP ONE; +PHEN100T82 PO
--- NOTE | 2019-01-08 10:04 | RAD ---
EXAMINATION: Magnetic resonance imaging (MRI) of the brain and brainstem without and with contrast 01/08/2019 8:15 AM Magnetic resonance venography (MRV) of the brain without contrast HISTORY: Pseudotumor cerebri TECHNIQUE: Multiplanar multi-weighted MRI of the brain and brainstem was performed without and with intravenous contrast using the general brain protocol. Noncontrast, [id number] magnetic resonance venography of the [place] was obtained. Maximum intensity projection images are provided. Contrast information: 18 mL Gadolinium based contrast COMPARISON: MRI brain 01/28/2017 FINDINGS: The scalp and calvarium are normal. The superior sagittal sinus demonstrates normal venous flow. The corpus callosum is normal in shape and signal intensity. The posterior fossa is unremarkable. Partially empty sella which is expanded, possibly secondary to elevated intracranial pressure. The brainstem and craniocervical junction are unremarkable. There are T2/FLAIR signal hyperintense foci in the periventricular and subcortical white matter which may be seen with mild chronic small vessel ischemic changes, migraine disorder or demyelinating disorder. Diffusion weighted images reveal no hyperintensities to suggest acute cerebral infarction. The susceptibility weighted sequences reveal no evidence of acute or chronic hemorrhage. The ventricles are normal in size and position without evidence of hydrocephalus. There are no areas of abnormal contrast enhancement. The paranasal sinuses are normal. The visualized portions of the mastoids are unremarkable. There is flattening of the posterior globes without definite papilledema. There is mild prominence of the left optic nerve sheath. Normal flow voids are demonstrated in the carotid arteries and basilar artery. Vascular findings: Superior sagittal sinus is patent. There is smooth narrowed caliber of the transverse sinuses bilaterally, left greater than right. Normal sigmoid sinus and jugular bulb are identified bilaterally. No filling defects are identified within the dural venous sinuses to suggest sinusitis venous thrombosis. IMPRESSION: 1. There is partially empty sella turcica which is expanded suggesting elevated intracranial pressure. Flattening of the posterior globes without definite papilledema. Constellation of findings may be associated with pseudotumor cerebri. 2. There are T2/FLAIR signal hyperintense foci in the periventricular and subcortical white matter which may be seen with mild chronic small vessel ischemic changes, migraine disorder or demyelinating disorder. 3. No evidence for sinus venous thrombosis. There is smooth narrowing of the transverse sinuses, left greater than right. Electronically signed by: Polina Huitron MD (01/08/2019 10:01 AM) [facility]
--- NOTE | 2019-01-08 10:04 | RAD ---
EXAMINATION: Magnetic resonance imaging (MRI) of the brain and brainstem without and with contrast 01/08/2019 8:15 AM Magnetic resonance venography (MRV) of the brain without contrast HISTORY: Pseudotumor cerebri TECHNIQUE: Multiplanar multi-weighted MRI of the brain and brainstem was performed without and with intravenous contrast using the general brain protocol. Noncontrast, [id number] magnetic resonance venography of the [place] was obtained. Maximum intensity projection images are provided. Contrast information: 18 mL Gadolinium based contrast COMPARISON: MRI brain 01/28/2017 FINDINGS: The scalp and calvarium are normal. The superior sagittal sinus demonstrates normal venous flow. The corpus callosum is normal in shape and signal intensity. The posterior fossa is unremarkable. Partially empty sella which is expanded, possibly secondary to elevated intracranial pressure. The brainstem and craniocervical junction are unremarkable. There are T2/FLAIR signal hyperintense foci in the periventricular and subcortical white matter which may be seen with mild chronic small vessel ischemic changes, migraine disorder or demyelinating disorder. Diffusion weighted images reveal no hyperintensities to suggest acute cerebral infarction. The susceptibility weighted sequences reveal no evidence of acute or chronic hemorrhage. The ventricles are normal in size and position without evidence of hydrocephalus. There are no areas of abnormal contrast enhancement. The paranasal sinuses are normal. The visualized portions of the mastoids are unremarkable. There is flattening of the posterior globes without definite papilledema. There is mild prominence of the left optic nerve sheath. Normal flow voids are demonstrated in the carotid arteries and basilar artery. Vascular findings: Superior sagittal sinus is patent. There is smooth narrowed caliber of the transverse sinuses bilaterally, left greater than right. Normal sigmoid sinus and jugular bulb are identified bilaterally. No filling defects are identified within the dural venous sinuses to suggest sinusitis venous thrombosis. IMPRESSION: 1. There is partially empty sella turcica which is expanded suggesting elevated intracranial pressure. Flattening of the posterior globes without definite papilledema. Constellation of findings may be associated with pseudotumor cerebri. 2. There are T2/FLAIR signal hyperintense foci in the periventricular and subcortical white matter which may be seen with mild chronic small vessel ischemic changes, migraine disorder or demyelinating disorder. 3. No evidence for sinus venous thrombosis. There is smooth narrowing of the transverse sinuses, left greater than right. Electronically signed by: Polina Huitron MD (01/08/2019 10:01 AM) [facility]
== END | disposition home or self-care (01) ==
LOC: MRI 07:45
PROVIDERS: ATTEND Psychiatry & Neurology Neurology
DX: G93.2 Benign intracranial hypertension (principal)
CPT/HCPCS: 70544; 70553; A9575

== ENCOUNTER → 2019-04-22 | Outpatient (CLI) | payer OTHER, MEDICAID ==
[~2019-04-22] MED LIST changes: -GADOTERATE 7.5 MMOL/15ML VIAL. IVP ONE
[2019-04-22 12:13] LABS: BASO % 1 % (0-3); EOS # 0.1 x10^3/uL (0.0-0.7); EOS % 3 % (0-3); HEMATOCRIT 39.4 % (36.0-47.0); HEMOGLOBIN 13.4 g/dL (12.0-15.5); LYMPH # 1.1 x10^3/uL (1.0-4.8); LYMPH % 26 % (24-48); MEAN CORPUSCULAR HEMOGLOBIN 30 pg (25-35); MEAN CORPUSCULAR HGB CONC 34 g/dL (31-37); MEAN CORPUSCULAR VOLUME 89 fL (79-100); MONO # 0.4 x10^3/uL (0.0-1.1); MONO % 9 % (0-9); NEUT # 2.6 x10^3/uL (1.8-7.7); NEUT % 62 % (31-73); PLATELET COUNT 198 x10^3/uL (140-400); RED BLOOD COUNT 4.43 x10^6/uL (3.50-5.40); RED CELL DISTRIBUTION WIDTH 13.3 % (11.5-14.5); WHITE BLOOD COUNT 4.2 x10^3/uL (4.0-11.0)
[2019-04-22 12:45] LABS: ALBUMIN 3.5 g/dL (3.4-5.0); CALCIUM 8.2 mg/dL (8.5-10.1); CREATININE 0.9 mg/dL (0.6-1.0); GFR 81.9; POTASSIUM 3.9 mmol/L (3.5-5.1); TOTAL BILIRUBIN 0.1 mg/dL (0.2-1.0)
== END | disposition home or self-care (01) ==
LOC: LAB 11:49
PROVIDERS: ATTEND Psychiatry & Neurology Neurology
DX: G93.2 Benign intracranial hypertension (principal); G50.0 Trigeminal neuralgia
CPT/HCPCS: 36415; 80053; 85025

== ENCOUNTER → 2020-01-03 | Outpatient (CLI) | payer OTHER, MEDICAID ==
--- NOTE | 2020-01-06 11:26 | SLEEP ---
DATE OF STUDY: 01/04/2020 HOME SLEEP STUDY REFERRED BY: Katey Ponce, nurse practitioner. The patient is a 44 years old, who weighs 205 pounds with a BMI of 41. The patient's Merrick score was 8. The patient underwent home sleep study, performed at [facility]. Total recording time was 466 minutes. During the night study, the patient had 12 obstructive apneas, no central apneas, 10 mixed apneas and 10 hypopneas. The patient had signs of flow limitation throughout the night that were not part of the AHI. The patient's AHI was 8 per hour. Nocturnal oximetry study revealed an average oxygen saturation of 95%; the lowest of 81%. Seventy minutes were spent in oxygen saturation less than 90%. Mean heart rate 54 beats per minute. IMPRESSION: 1. Mild obstructive sleep apnea. It could be moderate since there was evidence of flow limitation throughout the night. 2. Nocturnal hypoxia secondary to obstructive sleep apnea. RECOMMENDATIONS: 1. The patient would benefit from treatment of sleep apnea with CPAP. 2. Alternate treatment option would include oral appliance. 3. Weight loss is strongly advised. 4. Avoid [employer]IP[employer] depressants. 5. Cautioned regarding driving until symptoms of sleep apnea resolve with the above recommendations. ALBARO ROBERSON MD DR: DAYANA/yadiel JOB#: [id number] / [id number] augusto Khan Jr.,, Shar FRANKLIN, FAAP
== END | disposition home or self-care (01) ==
LOC: RT 09:57
PROVIDERS: ATTEND Nurse Practitioner Family
DX: G47.33 Obstructive sleep apnea (adult) (pediatric) (principal); R40.0 Somnolence
CPT/HCPCS: G0399

== ENCOUNTER 2020-08-27 01:46 | Emergency (ER) | payer OTHER, MEDICAID ==
[~2020-08-27] VITALS: Ht 149.9 cm; Wt 95.0 kg
[2020-08-27 02:36] LABS: BASO % 0 % (0-3); EOS % 0 % (0-3); HEMATOCRIT 39.1 % (36.0-47.0); HEMOGLOBIN 13.5 g/dL (12.0-15.5); LYMPH # 0.9 x10^3/uL (1.0-4.8); LYMPH % 21 % (24-48); MEAN CORPUSCULAR HEMOGLOBIN 30 pg (25-35); MEAN CORPUSCULAR HGB CONC 35 g/dL (31-37); MEAN CORPUSCULAR VOLUME 87 fL (79-100); MONO # 0.4 x10^3/uL (0.0-1.1); MONO % 9 % (0-9); NEUT # 2.8 x10^3/uL (1.8-7.7); NEUT % 69 % (31-73); PLATELET COUNT 188 x10^3/uL (140-400); RED BLOOD COUNT 4.48 x10^6/uL (3.50-5.40); WHITE BLOOD COUNT 4.1 x10^3/uL (4.0-11.0)
[2020-08-27 02:57] LABS: CALCIUM 7.8 mg/dL (8.5-10.1); CREATININE 1.2 mg/dL (0.6-1.0); GFR 58.3; POTASSIUM 3.6 mmol/L (3.5-5.1)
[2020-08-27 03:02] LABS: ALBUMIN 3.5 g/dL (3.4-5.0); MAGNESIUM 2.1 mg/dL (1.8-2.4); TOTAL BILIRUBIN 0.3 mg/dL (0.2-1.0)
--- NOTE | 2020-08-27 04:37 | RAD ---
Study: XR CHEST 1V Indication: Chest pain. Comparison: 04/22/2018 Findings: The cardiomediastinal silhouette is prominent in size but accentuated by low lung volumes and AP tech nique. Increased interstitial markings with a basilar predominance. There are also faint subpleural infiltra diane on the right more so than left. No lobar consolidation, layering effusion or pneumothorax. Impression: Increased interstitial markings with a basilar predominance and faint subpleural infiltrates on the r ight more so than left. In the setting of mild enlargement of the cardiomediastinal silhouette, inter stitial/alveolar edema is a consideration. Also possible is an atypical infectious process. Electronically signed by: EVELYNE STROUD MD (08/27/2020 4:35 AM) [facility]
[2020-08-27] MEDS ORDERED: AZIT500T4 PO ×2 (04:46→05:24)
[2020-08-27] MEDS ORDERED: DEXA4TAB PO ×2 (04:46→05:24)
--- NOTE | 2020-08-27 04:46 | PHYS DOC ---
Past Medical History Past Medical History: Asthma, Migraines Past Surgical History: Hysterectomy Smoking Status: Never Smoker Alcohol Use: None Drug Use: None Adult General Chief Complaint Chief Complaint: MULTIPLE COMPLAINTS [facility] HPI Patient is a 45 year old female with a past history of asthma presenting emergency department complaining of new onset of flulike illness. Patient states over the last week she developed worsening sensation of body aches, unremitting nonproductive cough and chest discomfort when she takes of breath. Patient notes that multiple members of her family did not diagnosed with COVID- 19 she was tested positive a week ago. Denies any shortness of breath or increased work of breathing Review of Systems Review of Systems Constitutional: Denies fever or chills [] Eyes: Denies change in visual acuity, redness, or eye pain [] HENT: Denies nasal congestion or sore throat [] Respiratory: Denies cough or shortness of breath [] Cardiovascular: No additional information not addressed in HPI [] GI: Denies abdominal pain, nausea, vomiting, bloody stools or diarrhea [] : Denies dysuria or hematuria [] Musculoskeletal: Denies back pain or joint pain [] Integument: Denies rash or skin lesions [] Neurologic: Denies headache, focal weakness or sensory changes [] Endocrine: Denies polyuria or polydipsia [] All other systems were reviewed and found to be within normal limits, except as documented in this note. Allergies Allergies Allergies Coded Allergies Type Severity Reaction Last Updated Verified No Known Drug Allergies 01/14/17 No Physical Exam Physical Exam Constitutional: Well developed, well nourished, no acute distress, non-toxic appearance. [] HENT: Normocephalic, atraumatic, bilateral external ears normal, oropharynx moist, no oral exudates, nose normal. [] Eyes: PERRLA, EOMI, conjunctiva normal, no discharge. [] Neck: Normal range of motion, no tenderness, supple, no stridor. [] Cardiovascular:Heart rate regular rhythm, no murmur [] Lungs & Thorax: Bilateral breath sounds clear to auscultation [] Abdomen: Bowel sounds normal, soft, no tenderness, no masses, no pulsatile masses. [] Skin: Warm, dry, no erythema, no rash. [] Back: No tenderness, no CVA tenderness. [] Extremities: No tenderness, no cyanosis, no clubbing, ROM intact, no edema. [] Neurologic: Alert and oriented X 3, normal motor function, normal sensory function, no focal deficits noted. [] Psychologic: Affect normal, judgement normal, mood normal. [] Current Patient Data Vital Signs Vital Signs Date Time Temp Pulse Resp B/P (MAP) Pulse Ox O2 Delivery O2 Flow Rate FiO2 08/27/20 02:02 98.0 68 16 125/56 (79) 98 Room Air 98.0 Lab Values Laboratory Tests Test 08/27/20 02:20 White Blood Count 4.1 x10^3/uL (4.0-11.0) Red Blood Count 4.48 x10^6/uL (3.50-5.40) Hemoglobin 13.5 g/dL (12.0-15.5) Hematocrit 39.1 % (36.0-47.0) Mean Corpuscular Volume 87 fL (79-100) Mean Corpuscular Hemoglobin 30 pg (25-35) Mean Corpuscular Hemoglobin Concent 35 g/dL (31-37) Red Cell Distribution Width 13.0 % (11.5-14.5) Platelet Count 188 x10^3/uL (140-400) Neutrophils (%) (Auto) 69 % (31-73) Lymphocytes (%) (Auto) 21 % (24-48) L Monocytes (%) (Auto) 9 % (0-9) Eosinophils (%) (Auto) 0 % (0-3) Basophils (%) (Auto) 0 % (0-3) Neutrophils # (Auto) 2.8 x10^3/uL (1.8-7.7) Lymphocytes # (Auto) 0.9 x10^3/uL (1.0-4.8) L Monocytes # (Auto) 0.4 x10^3/uL (0.0-1.1) Eosinophils # (Auto) 0.0 x10^3/uL (0.0-0.7) Basophils # (Auto) 0.0 x10^3/uL (0.0-0.2) Sodium Level 143 mmol/L (136-145) Potassium Level 3.6 mmol/L (3.5-5.1) Chloride Level 108 mmol/L (98-107) H Carbon Dioxide Level 21 mmol/L (21-32) Anion Gap 14 (6-14) Blood Urea Nitrogen 16 mg/dL (7-20) Creatinine 1.2 mg/dL (0.6-1.0) H Estimated GFR (Cockcroft-Gault) 58.3 BUN/Creatinine Ratio 13 (6-20) Glucose Level 102 mg/dL (70-99) H Calcium Level 7.8 mg/dL (8.5-10.1) L Magnesium Level 2.1 mg/dL (1.8-2.4) Total Bilirubin 0.3 mg/dL (0.2-1.0) Aspartate Amino Transferase (AST) 16 U/L (15-37) Alanine Aminotransferase (ALT) 18 U/L (14-59) Alkaline Phosphatase 104 U/L (46-116) Troponin I Quantitative < 0.017 ng/mL (0.000-0.055) Total Protein 7.0 g/dL (6.4-8.2) Albumin 3.5 g/dL (3.4-5.0) Albumin/Globulin Ratio 1.0 (1.0-1.7) Laboratory Tests 08/27/20 02:20 Laboratory Tests 08/27/20 02:20 EKG EKG [] Radiology/Procedures Radiology/Procedures [] Course & Med Decision Making Course & Med Decision Making Pertinent Labs and Imaging studies reviewed. (See chart for details) 45-year-old female presenting with new onset of chest pain and fatigue consistent with viral syndrome. Will obtain ACS work-up and chest x-ray and if negative feel the patient be safely discharged home. Chest x-ray does demonstrate a mild amount of infiltrates consistent with COVID- 19. Will discharge patient home on azithromycin and dexamethasone instructions return for symptoms worsen or if she becomes hypoxic Dragon Disclaimer Dragon Disclaimer This electronic medical record was generated, in whole or in part, using a voice recognition dictation system. Departure Departure Impression: Primary Impression: Viral syndrome Disposition: HOME / SELF CARE / HOMELESS Condition: STABLE Referrals: ALE VILLEGAS MD (PCP) Patient Instructions: Viral Syndrome Additional Instructions: EMERGENCY DEPARTMENT GENERAL DISCHARGE INSTRUCTIONS Thank you for coming to [facility] Emergency Department (ED) today and trusting us with you care. We trust that you had a positive experience in our Emergency Department. If you wish to speak to the department management, you may call the Director at [phone]. YOUR FOLLOW UP INSTRUCTIONS ARE FOLLOWS: 1. Do you have a private Doctor? If you do not have a private doctor, please ask for a resource list of physicians or clinics that may be able to assist you with follow up care. 2. The Emergency Physicain has interpreted your x-rays. The X-Ray specialist will also review them. If there is a change in the findings, you will be notified in 48 hours when at all possible. 3. A lab test or culture has been done, your results will be reviewed and you will be notified if you need a change in treatment. ADDITIONAL INSTRUCTIONS AND INFORMATION: 1. Your care today has been supervised by a physician who is specially trained in emergency care. Many problems require more than one evaluation for a complete diagnosis and treatment. We recommend that you schedule your follow up appointment as recommended to ensure complete treatment of you illness or injury. If you are unable to obtain follow up care and continue to have a problem, or if your condition worsens, we recommend that you return to the ED. 2. We are not able to safely determine your condition over the phone nor are we able to give sound medical advice over the phone. For these safety reasons, if you call for medical advice we will ask you to come to the ED for further evaluation. 3. If you have any questions regarding these discharge instructions please call the ED at [phone]. SAFETY INFORMATION: In the interest of safety, wellness, and injury prevention; we encourage you to wear your sealbelt, if you smoke; quite smoking, and we encourage family to use a protective helmet for bicycling and other sporting events that present an increased risk for head injury. IF YOUR SYMPTOMS WORSEN OR NEW SYMPTOMS DEVELOP, OR YOU HAVE CONCERNS ABOUT YOUR CONDITION; OR IF YOUR CONDITION WORSENS WHILE YOU ARE WAITING FOR YOUR FOLLOW UP APPOINTMENT; EITHER CONTACT YOUR PRIMARY CARE DOCTOR, THE PHYSICIAN WHOSE NAME AND NUMBER YOU WERE GIVEN, OR RETURN TO THE ED IMMEDIATELY. Scripts Dexamethasone (DEXAMETHASONE) 4 Mg Tablet 4 TAB PO DAILY for 5 Days, #5 TAB Prov: ANIYA MCCLELLAND MD 08/27/20 Azithromycin (AZITHROMYCIN TABLET) 500 Mg Tablet 1 TAB PO DAILY for 5 Days, #5 TAB 0 Refills Prov: ANIYA MCCLELLAND MD 08/27/20 ANIYA MCCLELLAND MD Aug 27, 2020 04:46
[2020-08-27 04:56] VITALS: BP 108/62
--- NOTE | 2020-08-27 06:20 | EKG ---
[address] [place] [address] Test Date: 2020-08-27 Test Time: 02:41:17 Pat Name: KRISTY COOK Department: Room: Gender: F Policyholder Information Clerk: : 1975 Requested By: ANIYA MCCLELLAND Order Number: [id number] Reading MD: Measurements Intervals Mcdavid Rate: 75 P: 49 KS: 186 QRS: 61 QRSD: 94 T: 62 QT: 404 QTc: 454 Interpretive Statements SINUS RHYTHM NORMAL ECG RI6.02 Compared to ECG 08/27/2020 01:55:56 Left-axis deviation no longer present
== END 2020-08-27 05:23 | disposition home or self-care (01) ==
LOC: ER 01:46
DX: B34.9 Viral infection, unspecified (principal); R07.89 Other chest pain; R20.2 Paresthesia of skin; R05 Cough; J45.909 Unspecified asthma, uncomplicated; G43.909 Migraine, unspecified, not intractable, without status migrainosus; Z90.710 Acquired absence of both cervix and uterus
CPT/HCPCS: 71045; 80053; 83735; 84484; 85025; 93005; 99285

== ENCOUNTER 2021-07-07 01:34 | Emergency (ER) | payer OTHER, MEDICAID ==
[~2021-07-07] VITALS: Ht 149.9 cm; Wt 100.5 kg
[~2021-07-07 01:34] MED LIST changes: +AZIT500T4 PO; +CYCL10TA19 PO; -CYCL10TA2 PO; +DEXA4TAB PO
--- NOTE | 2021-07-07 02:28 | PHYS DOC ---
Past Medical History Past Medical History: Asthma, Migraines Past Surgical History: Hysterectomy Smoking Status: Never Smoker Alcohol Use: None Drug Use: None General Adult EDM: Chief Complaint: HEMORRHOIDS HPI: HPI: Patient is a 46 year old female who presents here with concern for intermittent mild rectal bleeding, which she describes as a "light" and only occurs with wiping. She has had the symptoms for over a year. Her doctors told her she has hemorrhoids. She reports that her stomach often "growls." She denies any actual abdominal pain denies constipation or diarrhea. She denies fevers or chills. She denies anorexia, weight loss. She denies any heavy rectal bleeding. She reports occasional anal itching, but denies rectal or anal pain. Her 20-year-old daughter checked into the ER for separate issue, so she decided to check in to be seen for this as well. There were no acute changes or concerns regarding the symptoms on today's date. Review of Systems: Review of Systems: Constitutional: Denies fever or chills. [] Respiratory: Denies cough or shortness of breath. [] Cardiovascular: Denies chest pain or edema. [] GI: Denies abdominal pain, nausea, vomiting, diarrhea, constipation. Occa sional mild rectal bleeding with wiping. : Denies hematuria or any urinary symptoms. Musculoskeletal: Denies back pain or joint pain. [] Integument: Denies rash. [] Neurologic: Denies headache, focal weakness or sensory changes. [] Psychiatric: Denies depression or anxiety. [] Heart Score: C/O Chest Pain: No Risk Factors: Risk Factors: DM, Current or recent (<one month) smoker, HTN, HLP, family history of CAD, obesity. Risk Scores: Score 0 - 3: 2.5% MACE over next 6 weeks - Discharge Home Score 4 - 6: 20.3% MACE over next 6 weeks - Admit for Clinical Observation Score 7 - 10: 72.7% MACE over next 6 weeks - Early Invasive Strategies Allergies: Allergies: Allergies Coded Allergies Type Severity Reaction Last Updated Verified No Known Drug Allergies 01/14/17 No Physical Exam: PE: Constitutional: Well developed, well nourished, no acute distress, non-toxic appearance. [] HENT: Normocephalic, atraumatic Neck: Trachea midline Cardiovascular:Heart rate regular rhythm, +2 dorsalis pedis and +2 radial pulses bilaterally Lungs & Thorax: Bilateral breath sounds clear to auscultation [] Abdomen: Bowel sounds normal, soft, no tenderness, no masses, no pulsatile masses. Abdomen is completely nontender to palpation. No CVA tenderness. Rectal: There is a small, nonthrombosed hemorrhoid around 7:00. No bleeding noted. Stool is brown, not grossly bloody. There are no other anal or perianal lesions noted. Skin: Warm, dry, no erythema, no rash. [] Back: No tenderness, no CVA tenderness. [] Extremities: No peripheral edema, no limb deformity. Neurologic: Alert and oriented X 3, normal motor function, normal sensory function, no focal deficits noted. [] Psychologic: Affect somewhat bizarre. She is cooperative. Current Patient Data: Labs: Laboratory Tests Test 07/07/21 02:27 POC Urine HCG, Qualitative Hcg negative (Negative) EKG: EKG: [] Radiology/Procedures: Radiology/Procedures: [] Course & Med Decision Making: Course & Med Decision Making I discussed the findings, differential diagnosis and plan of care with the patient. She does have a nonthrombosed, small external hemorrhoid. It is not actively bleeding. She admits that there is no heavy bleeding by history. There is no current indication for any invasive exams, labs, or imaging. I did tell her to contact her PCP for follow-up. I explained that if rectal bleeding increases or is otherwise unexplained, she may wish to have a GI referral for screening colonoscopy. She verbalized understanding. Return precautions are given Dragon Disclaimer: Scot Disclaimer: This electronic medical record was generated, in whole or in part, using a voice recognition dictation system. Departure Departure Impression: Primary Impression: External hemorrhoid Disposition: HOME / SELF CARE / HOMELESS Condition: STABLE Referrals: ALE VILLEGAS MD (PCP) Patient Instructions: Hemorrhoids Additional Instructions: If your hemorrhoids are bothering you, causing pain or itching, use the medication prescribed. Otherwise avoid being constipated, avoid straining or sitting on the toilet for too long, as this may cause increase in bleeding or pain with your hemorrhoids. Return to the ER for abdominal pain, vomiting, heavy or uncontrolled rectal bleeding, or any other concerns. Please follow-up with your primary care physician regarding this. You may wish to discuss an early outpatient screening colonoscopy if your symptoms persist. Scripts Hydrocortisone/Pramoxine (PROCTOFOAM-HC 1%-1% FOAM) 10 Gm Foam 1 APPFUL RC BID for hemorrhoid pain, #10 GM 1 Refill Prov: FAIZA GAN DO 07/07/21 FAIZA GAN DO Jul 07, 2021 02:28
[2021-07-07 02:34] VITALS: BP 160/77
[2021-07-07] MEDS ORDERED: HYDR10FO3 RC (02:38)
== END 2021-07-07 02:43 | disposition home or self-care (01) ==
LOC: ER 01:34
DX: K64.4 Residual hemorrhoidal skin tags (principal); J45.909 Unspecified asthma, uncomplicated; G43.909 Migraine, unspecified, not intractable, without status migrainosus; Z90.710 Acquired absence of both cervix and uterus
CPT/HCPCS: 81025; 99283